=== PATIENT | female | born 1975 | race Caucasian/White ===

== ENCOUNTER 2017-02-20 10:38 | Emergency (ER) | payer OTHER ==
[~2017-02-20 10:38] MED LIST: DIFLUCAN PO; FLEXERIL10 MG PO; HYDROCODON-ACE1 EAC7 PO; INDOCIN SR75 MG PO; KEFLEX500 MG PO; LIDODERM30 EA TOP; MACROBID100 M1 PO; PRILOSEC PO; PYRIDIUM PO; ROBAXIN 750750 M1 PO; ROBAXIN PO; VIBRAMYCIN100 M1 PO; ZOFRAN ODT4 MG PO; ZYRTEC10 M2 PO
[2017-02-20 11:03] LABS: INFLUENZA A NEG (NEG); INFLUENZA B NEG (NEG)
== END 2017-02-20 11:09 | disposition home or self-care (01) ==
LOC: SED 10:38
PROVIDERS: Physician Assistant
DX: J01.90 Acute sinusitis, unspecified (principal); J02.9 Acute pharyngitis, unspecified; F17.200 Nicotine dependence, unspecified, uncomplicated; Z79.899 Other long term (current) drug therapy
CPT/HCPCS: 87651; 87804; 99282